=== PATIENT | female | born 1970 | race Caucasian/White ===

== ENCOUNTER 2017-05-13 11:35 | Emergency (ER) | payer OTHER, MEDICAID ==
[~2017-05-13] VITALS: Ht 154.9 cm; Wt 76.0 kg
[~2017-05-13 11:35] MED LIST: BACT400T PO; BENA25TA3 PO; BUSP10TA PO; FLUT1SPR5 EACH NARE; LEVO50TA4 PO; NITR100C4 PO; OLME1TAB PO; PANT40TA3 PO; SPIRCAP INH; SYMB80AE INH; VITA200013 PO; ZANA4CAP PO; ZOFR4TAB PO
[2017-05-13 11:51] VITALS: BP 186/101; PULSE 70; RESP 16; TEMP 98.4; O2SAT 100
[2017-05-13 12:01] VITALS: BP 170/100
[2017-05-13] MEDS ORDERED: HYDR-3583 PO (12:05)
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
[2017-05-13] MEDS ORDERED: KETOROLAC TROMETHAMINE 30 MG/ML (IVP) VIAL IV PUSH ONE (12:15)
[2017-05-13] MEDS ORDERED: ONDANSETRON HCL 4 MG/2 ML VIAL IV PUSH ONE (12:15)
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
[2017-05-13] MEDS ORDERED: IBUP-232 PO (13:55)
[2017-05-13] MEDS ORDERED: ORPHENADRINE INJ 60 MG/2 ML AMP IM ONE (14:00)
== END 2017-05-13 14:22 | disposition home or self-care (01) ==
LOC: NEPD 11:35
DX: S13.4XXA Sprain of ligaments of cervical spine, initial encounter (principal); M54.5 Low back pain; I10 Essential (primary) hypertension; J45.909 Unspecified asthma, uncomplicated; V49.49XA Driver injured in collision with other motor vehicles in traffic accident, initial encounter
CPT/HCPCS: 70450; 72125; 72128; 72131; 96372; 96374; 96375; 99285; J1885; J2360; J2405